=== PATIENT | female | born 1995 | race Caucasian/White ===

== ENCOUNTER 2024-04-22 10:15 | Outpatient (CLI) | payer MEDICAID, SELFPAY ==
[2024-04-22 10:44] VITALS: BMI 42.3
[2024-04-22 10:45] VITALS: PULSE 82; O2SAT 99
[2024-04-22 10:49] VITALS: RESP 16; TEMP 36.4
[2024-04-22 10:50] VITALS: BP 110/66; PULSE 82
--- NOTE | 2024-04-22 19:48 | OB.TRI.HP_ITS ---
HPI - General HPI Narrative ERLIN SWIFT, is a 28 F who presents at 25w1d for decreased movement. History of ovarian cyst and right sided pain intermittently. Maternal Data Information Final DANIEL: 08/04/24 PFSH PFSH Home Medications ?Medication ?Instructions ?Recorded ?Last Taken ?Type ondansetron 4 mg disintegrating mg PO Q8H PRN nausea and vomiting 04/22/24 Unknown History tablet gfctrtn-xnau-YP 40 mg-1 1 tab PO DAILY 04/22/24 Unknown History mg chewable tablet Allergy/AdvReac Type Severity Reaction Status Date / Time No Known Allergies Allergy Verified 04/22/24 10:45 NST FHR Rate Baby A Baseline: 130 Variability:: Moderate Accelerations:: 10 x 10 Decelerations:: None NST Reactive:: Yes Assessment & Plan (1) Decreased movement: PLAN: Plan 1) heart tones auscultated, too early for official NST due to getataional age. 2) Pain as before, to follow up in office or if pain increased to go to ED at [facility]. consulted due to known ovarian cyst. 3) D/C home
--- NOTE | 2024-04-25 08:58 | OB.TRI.NOTE ---
HPI - General HPI Narrative ERLIN JENIFFER, is a 28 F who presents PFSH PFS Home Medications ?Medication ?Instructions ?Recorded ?Last Taken ?Type ondansetron 4 mg disintegrating mg PO Q8H PRN nausea and vomiting 04/22/24 Unknown History tablet oerjbaw-fbiy-BV 40 mg-1 1 tab PO DAILY 04/22/24 Unknown History mg chewable tablet Allergy/AdvReac Type Severity Reaction Status Date / Time No Known Allergies Allergy Verified 04/22/24 10:45
== END 2024-04-22 11:30 | disposition home or self-care (01) ==
LOC: WPOUT 10:29 → WP 10:30
PROVIDERS: Visit Provider Advanced Practice Midwife
DX: O36.8120 Decreased fetal movements, second trimester, not applicable or unspecified (principal); Z3A.25 25 weeks gestation of pregnancy
CPT/HCPCS: 59050; 99221; G0378